=== PATIENT | male | born 1955 | race Two or more races ===

== ENCOUNTER 2021-12-11 09:19 | Inpatient (IN) | payer SELFPAY ==
[2021-12-11] VITALS (15 sets, daily range): BP systolic 99–140; BP diastolic 60–90
[~2021-12-11] VITALS: Ht 165.1 cm; Wt 83.9 kg
--- NOTE | 2021-12-11 09:19 | NUR ---
TO ER BED 9. BIBRA 41 FROM HOME C/O WITNESSED SEIZURE EPISODE FROM HOME. SEIZURE PRECAUTIONS APPLIED. PT ABDOMEN IS DISTENDED UPON ARRIVAL. PT OXYGEN SATURATION IS 100% ON 2L NC. PT ATTCHED TO MONITOR. DR SANDERS AT BEDSIDE.
[2021-12-11] MEDS ORDERED: LORAZEPAM INJ 2 MG/ML VIAL ONE ×2 (09:22→10:36)
--- NOTE | 2021-12-11 09:27 | NUR ---
ADDITIONAL IV ESTALISHED L WRIST 18G. LABS COLLECTED AND DRAWN AT BEDSIDE. CONVERTED TO SALINE LOCK.
--- NOTE | 2021-12-11 09:27 | NUR ---
Note ilene in EDM - 12/11/21 at 1006 by MFRAUSTO ADDITION IV ESTALISHED L WRIST 18G. LABS COLLECTED AND DRAWN AT BEDSIDE. CONVERTED TO SALINE LOCK.
[2021-12-11] MEDS ORDERED: LORAZEPAM INJ 2 MG/ML VIAL IVP ONE (09:30)
--- NOTE | 2021-12-11 09:31 | NUR ---
URINE SAMPLE COLLECTED AND SENT.
[2021-12-11 09:51] LABS: BASOPHILS % (AUTO) 0.3 % (0.0-2.0); HEMATOCRIT 40 % (39-51); HEMOGLOBIN 13.3 g/dL (13.5-17.5); LYMPHOCYTES # (AUTO) 0.8 K/uL (0.8-4.8); LYMPHOCYTES % (AUTO) 6.2 % (20.0-44.0); MEAN CORPUSCULAR HGB CONC 33 g/dl (31.0-36.0); MEAN CORPUSCULAR VOLUME 89 fL (80-96); MONOCYTES # (AUTO) 0.3 K/uL (0.1-1.30); MONOCYTES % (AUTO) 2.5 % (2.0-12.0); NEUTROPHILS # (AUTO) 12.2 K/uL (1.8-8.9); PLATELET COUNT (AUTO) 121 K/uL (150-450); RED BLOOD CELL COUNT(AUTO) 4.51 MIL/uL (4.5-6.0); WHITE BLOOD COUNT (AUTO) 13.4 K/uL (4.3-11.0)
--- NOTE | 2021-12-11 09:55 | NUR ---
RAPID COVID TEST COLLECTED AND SENT
[2021-12-11 10:04] LABS: ALBUMIN 3.1 g/dL (3.4-5.0); ALCOHOL, BLOOD < 3 mg/dL (0-0); ALKALINE PHOSPHATASE 114 U/L (46-116); ASPARTATE AMINOTRANSFERASE 136 U/L (15-37); BILIRUBIN,DIRECT 0.4 mg/dL (0.0-0.2); BILIRUBIN,TOTAL 0.9 mg/dL (0.2-1.0); CALCIUM, SERUM 8.1 mg/dL (8.5-10.1); CARBON DIOXIDE 21 mmol/L (21-32); CREATININE 2.2 mg/dL (0.6-1.3); GLUCOSE 188 mg/dL (74-106); TOTAL PROTEIN, SERUM 6.1 g/dL (6.4-8.2); UREA NITROGEN, BLOOD 4 mg/dL (7-18)
[2021-12-11 10:07] LABS: ACETAMINOPHEN 0 ug/ml (10-30); POTASSIUM 2.8 mmol/L (3.5-5.1)
[2021-12-11 10:08] LABS: CHLORIDE 68 mmol/L (98-107); SODIUM SERUM 107 mmol/L (136-145)
[2021-12-11] MEDS ORDERED: IV Sodium Chloride 3% 500 ML 500 ML IV ONE (10:30)
[2021-12-11 10:31] LABS: BILIRUBIN,URINE NEGATIVE (NEGATIVE); LEUKOCYTE ESTERASE ,URINE NEGATIVE (NEGATIVE); NITRITE, URINE NEGATIVE (NEGATIVE); PH,URINE 7.5 (5.0-8.0); PROTEIN,URINE NEGATIVE (NEGATIVE); UGLUCOSE NEGATIVE (NEGATIVE); UROBILINOGEN,URINE 0.2 EU/dL (0.2)
[2021-12-11 10:34] LABS: COLOR,URINE LIGHT YELLOW (YELLOW)
[2021-12-11 10:39] LABS: WBC,URINE 0-2 /HPF (0-3)
[2021-12-11 10:40] LABS: BACTERIA,URINE None seen /HPF (None Seen); SPERM,URINE Few /HPF (None Seen); SQUAMOUS EPITHELIAL CELL,UR 0-2 /HPF (None Seen)
[2021-12-11 10:40] LABS: ALANINE AMINOTRANSFERASE 81 U/L (12-78)
--- NOTE | 2021-12-11 10:41 | NUR ---
16FR RUELAS CATHETER IN PLACE 200ML OUTPUT
--- NOTE | 2021-12-11 10:43 | NUR ---
DR SANDERS AT BEDSIDE FOR PICC LINE INSERTION
[2021-12-11] MEDS ORDERED: LORAZEPAM INJ 2 MG/ML VIAL IV PRN (11:00)
[2021-12-11] MEDS ORDERED: MAGNESIUM HYDROXIDE 30 ML UDC PO PRN (11:00)
[2021-12-11] MEDS ORDERED: Z GUARD REMEDY 4 OZ OINT TP PRN (11:00)
[2021-12-11] MEDS ORDERED: IV Sodium Chloride 3% 500 ML 300 ML IV PRN (11:00)
[2021-12-11] MEDS ORDERED: FOLIC ACID 1 MG TABLET PO ONE (11:00)
[2021-12-11] MEDS ORDERED: LORAZEPAM INJ 2 MG/ML VIAL IV ONE (11:00)
[2021-12-11] MEDS ORDERED: ACETAMINOPHEN 325 MG TABLET PO PRN (11:00)
[2021-12-11] MEDS ORDERED: ONDANSETRON HCL/PF 4 MG/2 ML VIAL IVP PRN (11:00)
[2021-12-11] MEDS ORDERED: MAG HYDROX/AL HYDROX/SIMETH 30 ML UDC PO PRN (11:00)
--- NOTE | 2021-12-11 11:16 | NUR ---
PT INTUBATED BY DR SANDERS. INITIAL VITALS 1115; HEART RATE 76, OXYGEN 100% ON 2L NC, BLOOD PRESSURE 158/86. 1116 20 ETOMIDATE GIVEN, 1117 100 ROCURONIUM GIVEN, 1122 ET TUBE PLACED 22' 7.5'. VITALS AFTER 1124; HEART RATE 146, OXYGEN 97% ON VENT, BLOOD PRESSURE 158/86.
--- NOTE | 2021-12-11 11:18 | NUR ---
VENT SETTINGS FIOS 40% TIDAL VOLUME: 450 RATE: 14 I:E: 1:2 PEEP: 5
[2021-12-11] MEDS ORDERED: PROPOFOL 100 ML ONE (11:19)
--- NOTE | 2021-12-11 11:25 | NUR ---
RT NOTE, PT. 66 Y OLD REC. IN ER STAT RT CALLED X3 RT,S AT THE BEDSIDE. ASSISTED DR. SANDERS FOR ORALLY INTUBATION, ETT # 7.5 SECURED AT 23 LIP LINE, EQUAL CHEST RISE NOTED, GOOD COLOR EXCHANGED ON CAPNOGRAPHY, BILATERALLY B/S RALES SUX'D FOR MOD. AMT OF TANNISH COLOR SECRETIONS, PLACED ON VENT WITH NOTED VENT SETTINGS PER MD ORDER, ALARMS ARE SET AND FUNCTIONAL, AMBU BAG REMAIN AT THE BEDSIDE, CONTINUE FOR CARE AND MONITOR CLOSELY. Addendum: 12/11/21 at 1845 by RAUL RUBIN RT Amended: Links added.
--- NOTE | 2021-12-11 11:36 | NUR ---
REPORT GIVEN TO SHELIA OF ICU
--- NOTE | 2021-12-11 11:48 | NUR ---
XRAY AT BEDSIDE
--- NOTE | 2021-12-11 11:52 | NUR ---
ULTRASOUND AT BEDSIDE
[2021-12-11] MEDS ORDERED: ETOMIDATE 2 MG/ML VIAL IV ONE ×2 (12:00→15:14)
[2021-12-11] MEDS ORDERED: PROPOFOL 100 ML IV ONE (12:00)
[2021-12-11] MEDS ORDERED: ROCURONIUM BROMIDE 100 MG/10 ML VIAL IV ONE (12:00)
--- NOTE | 2021-12-11 12:30 | NUR ---
EMAIL MARKETING COORDINATOR Pt arrived to ICU via bed, pt intubated, sedated on propofol, moves bue and ble, does not follow commands. NG tube placed in left nare, positive placement verified. lung sounds course and diminished. abdomen distended and round, hypoactive bowel sound. jefferson in place, intact and draining clear yellow urine. 2L emptied from jefferson. skin check done, no wounds noted. skin intact. right IJ central line dressing bloody, dressing change done and line secured per protocol. pt restrained, safety measures in place. all lines traced. all drips verified. 3% NS infusing per md order. no signs of acute distress at this time. will continue to monitor.
--- NOTE | 2021-12-11 12:37 | NUR ---
PT TRANSFERRED TO ICU VIA ACLS PROTOCOLS IN PLACE ACCOMPANIED BY RT AND HANDED OFF TO NURSE BASS.
--- NOTE | 2021-12-11 13:42 | NUR ---
SPOKE TO ZEYNEP FROM PHARMACY REGARDING WASTING ATIVAN 1MG. PT NAME WAS CHANGED DURING HIS STAY IN THE ER AND WAS UNLABLKE TO WASTE INITIAL DOSE OF ATIVAN ON THE OMNICELL. PHARMACY IS AWARE.
[2021-12-11] MEDS: PROPOFOL 100 ML IV PRN ×3 (13:56→21:55)
--- NOTE | 2021-12-11 13:58 | NUR ---
vent changes below per dr. schmidt: AC 12 VT 425 FIO2 40% Addendum: 12/11/21 at 1359 by PARUL DELONG RT Amended: Links added.
[2021-12-11] MEDS ORDERED: ROCURONIUM BROMIDE 50 MG/5 ML IV ONE (15:14)
[2021-12-11 15:20] LABS: ABG BASE EXCESS 8.3 mmol/L; ABG OXYGEN SATURATION 99.1 % (92.0-98.5); ABG PCO2 36.7 mmHg (35.0-45.0); ABG PH 7.546 (7.350-7.450); ABG PO2 158.8 mmHg (75.0-100.0); AaDO2 228.6 mmHg; COHb 0.7 % (0.5-1.5); MetHb 0.2 % (0.0-1.5); O2Hb 98.2 % (94.0-97.0); PEEP,BG 5 cm H2O; SITE, ABG Right Radial; VT, ABG 450 mL
[2021-12-11] MEDS: Thiamine 100 MG in IV D5W 50 ML IV SCH (15:34)
--- NOTE | 2021-12-11 19:31 | NUR ---
ROCK SPLITTER Bedside report given to [facility] nurse Wisdom RN, pt sedated and intubated. all lines traced. all drips verified. safety measures in place. pt clean and dry. no signs of acute distress at this time.
[2021-12-12] VITALS (24 sets, daily range): BP systolic 91–142; BP diastolic 18–110
[2021-12-12] MEDS: PROPOFOL 100 ML IV PRN ×3 (00:43→07:39)
[2021-12-12 02:07] LABS: BASOPHILS % (AUTO) 0.2 % (0.0-2.0); EOSINOPHILS % (AUTO) 0.1 % (0.0-6.0); HEMATOCRIT 41 % (39-51); HEMOGLOBIN 13.7 g/dL (13.5-17.5); LYMPHOCYTES # (AUTO) 0.7 K/uL (0.8-4.8); MEAN CORPUSCULAR HGB CONC 34 g/dl (31.0-36.0); MEAN CORPUSCULAR VOLUME 88 fL (80-96); MONOCYTES # (AUTO) 0.4 K/uL (0.1-1.30); MONOCYTES % (AUTO) 4.7 % (2.0-12.0); NEUTROPHILS # (AUTO) 8.1 K/uL (1.8-8.9); PLATELET COUNT (AUTO) 94 K/uL (150-450); RED BLOOD CELL COUNT(AUTO) 4.62 MIL/uL (4.5-6.0); WHITE BLOOD COUNT (AUTO) 9.3 K/uL (4.3-11.0)
[2021-12-12 02:24] LABS: ALBUMIN 2.6 g/dL (3.4-5.0); BILIRUBIN,TOTAL 0.8 mg/dL (0.2-1.0); CALCIUM, SERUM 7.9 mg/dL (8.5-10.1); CREATININE 1.3 mg/dL (0.6-1.3); MAGNESIUM 2.2 mg/dL (1.8-2.4); PHOSPHORUS 3.1 mg/dL (2.5-4.9); TOTAL PROTEIN, SERUM 5.6 g/dL (6.4-8.2)
[2021-12-12 02:27] LABS: POTASSIUM 2.2 mmol/L (3.5-5.1)
--- NOTE | 2021-12-12 02:40 | NUR ---
ICU/RN: SPOKE WITH DDR. CALL[place]AY REGARDING PT CRITICAL POTASSIUN 2.2 NEW ORDERS RECIEVED AND CARRIED OUT.
[2021-12-12] MEDS: POTASSIUM CHLORIDE 20 MEQ POWDER PACKET GT SCH ×4 (03:04→06:30)
[2021-12-12] MEDS: POTASSIUM CHLORIDE 10 MEQ/50 ML PREMIXED IVPB FOR PERIPHERAL LINE IV SCH ×4 (03:04→06:30)
[2021-12-12 07:17] LABS: BAND % (MANUAL) 2 % (0.0-5.0); LYMPHOCYTES % (MANUAL) 7 % (16-48); MONOCYTES % (MANUAL) 4 % (0-11.0); NEUTROPHILS % (MANUAL) 87 (42-76)
--- NOTE | 2021-12-12 07:30 | NUR ---
OPENING NOTE: REPORT RECEIVED FROM ANIBAL KWAN. PT INTUBATED, SEDATED. FOLLOW UP POTASSIUM LAB TO BE DRAWN SOON, WILL MONITOR RESULTS. PT CHECKED ON HOURLY AND PRN BY NURSING STAFF.
--- NOTE | 2021-12-12 08:00 | NUR ---
FOLLOW UP POTASSIUM WAS 3.8 UP FROM 2.2
[2021-12-12 08:11] LABS: CALCIUM, SERUM 8.2 mg/dL (8.5-10.1); CREATININE 1.3 mg/dL (0.6-1.3); POTASSIUM 3.8 mmol/L (3.5-5.1)
[2021-12-12] MEDS ORDERED: PROPOFOL 100 ML IV PRN (08:30)
[2021-12-12] MEDS ORDERED: DC PROPOFOL WHEN EXTUBATED XX PRN (09:00)
--- NOTE | 2021-12-12 09:05 | NUR ---
RT PATIENT PLACED ON VENT WEANING MODE PER DR PETERS. Addendum: 12/12/21 at 0956 by ATTILA HERNANDEZ RT Amended: Links added.
--- NOTE | 2021-12-12 09:58 | NUR ---
PT EXTUBATED AT THIS TIME PER MD ORDERS WITHOUT DIFFICULTY. PT PUT ON 2L NC. PT ABLE TO TALK, FRISIAN SPEAKING ONLY. SLIGHTLY CONFUSED AT THIS TIME. WILL CONTINUE TO MONITOR.
--- NOTE | 2021-12-12 09:58 | NUR ---
RT NOTE PT IS AWAKE AND FOLLOWS COMMANDS. EXTUBATED PER DR FRAN PHILLIP. PLACED ON 2L NC. 98% SPO2. NO SOB NOTED. WILL CONTINUE TO MONITOR. Addendum: 12/12/21 at 1005 by Francesco Griggs RT Amended: Links added.
[2021-12-12 10:00] LABS: ABG BASE EXCESS 5.5 mmol/L; ABG OXYGEN SATURATION 97.7 % (92.0-98.5); ABG PCO2 36.8 mmHg (35.0-45.0); ABG PH 7.508 (7.350-7.450); ABG PO2 96.2 mmHg (75.0-100.0); AaDO2 74.5 mmHg; COHb 0.7 % (0.5-1.5); MetHb 0.3 % (0.0-1.5); O2Hb 96.7 % (94.0-97.0); PEEP,BG 5 cm H2O; SITE, ABG Right Radial; VENT MODE, BG SIMV PS 15
[2021-12-12] MEDS: IV D5/0.45 NACL 1,000 ML IV PRN (10:18)
[2021-12-12 12:13] LABS: ABG BASE EXCESS 4.1 mmol/L; ABG OXYGEN SATURATION 98.2 % (92.0-98.5); ABG PCO2 35.5 mmHg (35.0-45.0); ABG PH 7.501 (7.350-7.450); ABG PO2 109.7 mmHg (75.0-100.0); AaDO2 134.7 mmHg; COHb 0.4 % (0.5-1.5); MetHb 0.3 % (0.0-1.5); O2Hb 97.5 % (94.0-97.0); SITE, ABG Right Radial
--- NOTE | 2021-12-12 14:22 | NUR ---
FOLLOW UP POTASSIUM LAB AT THIS TIME IS 3.3. PAUL DNP NOTIFIED, NO ORDERS GIVEN AT THIS TIME
[2021-12-12 14:39] LABS: CALCIUM, SERUM 7.9 mg/dL (8.5-10.1); CREATININE 1.3 mg/dL (0.6-1.3); POTASSIUM 3.3 mmol/L (3.5-5.1)
[2021-12-12] MEDS: Thiamine 100 MG in IV D5W 50 ML IV SCH (14:41)
--- NOTE | 2021-12-12 18:53 | NUR ---
END OF SHIFT NOTE: PT WAS EXTUBATED AT 0958 THIS AM. NO DIFFICULTIES SINCE EXTUBATION. PT PASSED BEDSIDE SWALLOW EVAL. PT SLEPT OFF AND OFF AFTER EXTUBATED, APPEARS TO BE FOLLOWING COMMANDS AND ALERT AND O X3 AT THIS TIME. RESTRAINTS DC'D AT THIS TIME. PT CHECKED ON HOURLY AND PRN BY NURSING STAFF.
[2021-12-13] VITALS (22 sets, daily range): BP systolic 86–151; BP diastolic 40–87
[2021-12-13] MEDS: IV D5/0.45 NACL 1,000 ML IV PRN (01:09)
[2021-12-13 04:41] LABS: BASOPHILS % (AUTO) 0.1 % (0.0-2.0); EOSINOPHILS % (AUTO) 0.5 % (0.0-6.0); HEMATOCRIT 36 % (39-51); HEMOGLOBIN 12.1 g/dL (13.5-17.5); LYMPHOCYTES # (AUTO) 1.1 K/uL (0.8-4.8); LYMPHOCYTES % (AUTO) 12.5 % (20.0-44.0); MEAN CORPUSCULAR HGB CONC 33 g/dl (31.0-36.0); MEAN CORPUSCULAR VOLUME 89 fL (80-96); MONOCYTES # (AUTO) 0.6 K/uL (0.1-1.30); MONOCYTES % (AUTO) 6.2 % (2.0-12.0); NEUTROPHILS # (AUTO) 7.3 K/uL (1.8-8.9); NEUTROPHILS % (AUTO) 80.7 % (43.0-81.0); PLATELET COUNT (AUTO) 88 K/uL (150-450); RED BLOOD CELL COUNT(AUTO) 4.06 MIL/uL (4.5-6.0); WHITE BLOOD COUNT (AUTO) 9.1 K/uL (4.3-11.0)
[2021-12-13 05:22] LABS: CALCIUM, SERUM 7.6 mg/dL (8.5-10.1); CREATININE 0.9 mg/dL (0.6-1.3); MAGNESIUM 1.9 mg/dL (1.8-2.4); PHOSPHORUS 2.6 mg/dL (2.5-4.9); POTASSIUM 3.1 mmol/L (3.5-5.1)
[2021-12-13] MEDS: THIAMINE HCL 100 MG TABLET PO SCH (12:49)
[2021-12-13] MEDS: POTASSIUM CL. PREMIX PERIPHER. 50 ML IV SCH ×4 (12:49→15:50)
[2021-12-13] MEDS ORDERED: POTASSIUM CL. PREMIX PERIPHER. 50 ML IV SCH (15:30)
--- NOTE | 2021-12-13 17:43 | NUR ---
PT. WAS TRANSFERRED PER PROTOCOL TO [facility]/TELE UNIT - ROOM 107 IN STABLE CONDITION. NO SSx OF ANY ACUTE DISTRESS NOTED AT THIS TIME. REPORT GIVEN TO RN AT BEDSIDE.
--- NOTE | 2021-12-13 17:45 | NUR ---
RN notes: patient transferred from icu, RN at bedside gave report, patient awake, alert and oriented x 4, respiration is regular, even and unlabored, with right IJ line patent, flushed with normal saline, on nasal cannula at 2L/Min,O2 sat 98%, denied any pain or discomfort, with jefferson catheter draining well,VITAL SIGNS CHECKED BP126/69, HR 98, RR 18, temp98.1, kept bed in low and locked position, safety measures rendered, call light within reach, attached to tele monitor ,sinus rhythm, will monitor the patient
--- NOTE | 2021-12-13 19:30 | NUR ---
RN NOTES, PATIENT IN BED AWAKE, A/O X3 ABLE TO VERBALIZE NEEDS AND CONCERNS, SAMI SPEAKING ONLY, ON 2LPM VIA NC, NO SOB/ACUTE DISTRESS NOTED, S/P INTUBATION 12/11 AND EXTUBATION 12/12, NSR IN TELE MONITOR , RIGHT IJ TRIPLE LUMEN CATH AND LEFT WRIST LINE IN PLACE BOTH PATENT AND INTACT, DRY AND CLEAN AT THIS TIME, BED LOCKED AND IN LOWEST POSITION, S/R OF BED UPX2 UP, CALL LIGHT W/I REACH, WILL CONTINUE TO MONITOR CLOSELY.
--- NOTE | 2021-12-13 19:46 | NUR ---
rn closing notes: patient in bed awake alert, orient and verbally responsive,not in any distress,ate 100% of his dinner, RJ dressing changed was soiled,denied any pain or discomfortmfoley catheter patent,bed kept in low and locked position, call light within reach, all needs met
[2021-12-13] MEDS: LEVETIRACETAM SOL (5 ML) 100 MG/ML UDC PO SCH (20:41)
[2021-12-14] VITALS: BP 122/73
[2021-12-14 01:40] LABS: LYMPHOCYTES % (MANUAL) 12 % (16-48); MONOCYTES % (MANUAL) 6 % (0-11.0); NEUTROPHILS % (MANUAL) 82 (42-76)
[2021-12-14 04:00] VITALS: BP 116/65
[2021-12-14 06:32] LABS: BASOPHILS % (AUTO) 0.2 % (0.0-2.0); EOSINOPHILS % (AUTO) 1.7 % (0.0-6.0); HEMATOCRIT 36 % (39-51); HEMOGLOBIN 11.8 g/dL (13.5-17.5); LYMPHOCYTES # (AUTO) 1.2 K/uL (0.8-4.8); LYMPHOCYTES % (AUTO) 17.7 % (20.0-44.0); MEAN CORPUSCULAR HGB CONC 33 g/dl (31.0-36.0); MEAN CORPUSCULAR VOLUME 91 fL (80-96); MONOCYTES # (AUTO) 0.7 K/uL (0.1-1.30); MONOCYTES % (AUTO) 10.2 % (2.0-12.0); NEUTROPHILS # (AUTO) 4.9 K/uL (1.8-8.9); NEUTROPHILS % (AUTO) 70.2 % (43.0-81.0); PLATELET COUNT (AUTO) 121 K/uL (150-450); RED BLOOD CELL COUNT(AUTO) 3.93 MIL/uL (4.5-6.0)
--- NOTE | 2021-12-14 06:49 | NUR ---
RN CLOSING NOTES, PATIENT IN BED AWAKE, A/O X3 ABLE TO VERBALIZE NEEDS AND CONCERNS, DANISH SPEAKING ONLY, ON 2LPM VIA NC WITH OPTIMAL O2 SAT LEVEL, NSR IN TELE MONITOR , S/P EXTUBATION 12/12, NO SOB/ACUTE DISTRESS NOTED DURING THE NIGHT, MAINTAINED O2 ON 2LPM VIA NC, NO SIGNIFICANT CHANGE DURING THE NIGHT, REMAINED STABLE, BED LOCKED AND IN LOWEST POSITION, S/R OF BED UPX2 UP, CALL LIGHT W/I REACH, WILL ENDORSE CONTINUITY OF CARE TO ONCOMING NURSE.
--- NOTE | 2021-12-14 07:15 | NUR ---
RN OPENING NOTE PATIENT ENDORSED BY OUTGOING NURSE FOR CONTINUITY OF CARE. PATIENT IN BED, AO X 3, IN NO S/SX OF ACUTE DISTRESS AT THIS TIME. ON 2 LITTER NC, SR ON THE MONITOR. NOTED IV SITE AT R IJ LUMEN, AND LEFT WIRST 20 KAIA IV ALL HUBS PATENT AND FLUSHING WELL, NO S/S OF INFECTION OR INFILTRATION. NOTED SAFETY MEASURES IMPLEMENTED. PATIENT BED ALARM IS ON. HEAD OF BED ELEVATED. BED IS LOCKED, IN LOWEST POSITION AND SIDE RAILS UP. CALL LIGHT WITHIN REACH OF THE PATIENT. WILL CONTINUE TO MONITOR AND REASSESS FOR ANY CHANGES.
[2021-12-14 07:22] LABS: CALCIUM, SERUM 8.1 mg/dL (8.5-10.1); CREATININE 0.6 mg/dL (0.6-1.3); MAGNESIUM 1.8 mg/dL (1.8-2.4); PHOSPHORUS 3.3 mg/dL (2.5-4.9); POTASSIUM 3.6 mmol/L (3.5-5.1)
[2021-12-14 08:00] VITALS: BP 139/72
[2021-12-14] MEDS: LEVETIRACETAM SOL (5 ML) 100 MG/ML UDC PO SCH (08:21)
[2021-12-14] MEDS: THIAMINE HCL 100 MG TABLET PO SCH (08:21)
[2021-12-14] MEDS ORDERED: LEVE250T2 PO (10:31)
[2021-12-14] MEDS ORDERED: Thiamine HCL PO (10:31)
[2021-12-14 12:00] VITALS: BP 112/65
--- NOTE | 2021-12-14 13:05 | NUR ---
Patient signed all appropriate discharge papers and all belongings returned to patient. Education provided to patient and patient verbalized understanding. patient was given 1 handwritten prescriptiobn Addendum: 12/14/21 at 1327 by SUN MARRERO RN prescription to fill at pharmacy that provided in the paperwork. Patient was discharged home with family and taken with private car. Patient's IV and ID band were removed. patient had no complaints of pain and was in stable condition. Assistance was provided as needed.
--- NOTE | 2021-12-14 14:45 | NUR ---
telemetry ,jefferson catheter and right neck central line discontinued with aseptic tech
[2021-12-14] MEDS ORDERED: LEVETIRACETAM (250 MG) 250 MG TABLET PO SCH (21:00)
== END 2021-12-14 16:47 | disposition home or self-care (01) | DRG 100 ==
LOC: ER 09:23 → ICU 11:30 → TELE1 12-13 15:37
PROVIDERS: ADMIT Internal Medicine; ATTEND Nurse Practitioner Acute Care
PROC: 5A1935Z Respiratory Ventilation, Less than 24 Consecutive Hours (ICD-10-PCS; principal; 2021-12-11)
PROC: 0BH18EZ Insertion of Endotracheal Airway into Trachea, Via Natural or Artificial Opening Endoscopic (ICD-10-PCS; 2021-12-11)
PROC: 02HV33Z Insertion of Infusion Device into Superior Vena Cava, Percutaneous Approach (ICD-10-PCS; 2021-12-11)
PROC: B548ZZA Ultrasonography of Superior Vena Cava, Guidance (ICD-10-PCS; 2021-12-11)
DX: G40.909 Epilepsy, unspecified, not intractable, without status epilepticus (principal); J96.00 Acute respiratory failure, unspecified whether with hypoxia or hypercapnia; G93.41 Metabolic encephalopathy; E87.1 Hypo-osmolality and hyponatremia; N17.9 Acute kidney failure, unspecified; J98.11 Atelectasis; I10 Essential (primary) hypertension; Z20.822 Contact with and (suspected) exposure to COVID-19; K70.9 Alcoholic liver disease, unspecified; F10.10 Alcohol abuse, uncomplicated; Y90.0 Blood alcohol level of less than 20 mg/100 ml; Z91.14 Patient's other noncompliance with medication regimen; D69.6 Thrombocytopenia, unspecified
CPT/HCPCS: 36415; 36600; 70450-TC; 71045-TC; 76770-TC; 80048-TC; 80053-TC; 80076-TC; 81001; 82803-TC; 82962-TC; 83735-TC; 84100-TC; 84478-TC; 85025-TC; 92526; 92611-TC; 94002-TC; 94003-TC; 94799-TC; 97116-TC; 97530-TC; 99082-TC; C9803; G0378; G0480; J1953; J2060; J3411; J3480; J3490; J7050; J7060